=== PATIENT | female | born 1955 | race Caucasian/White ===

== ENCOUNTER 2018-04-18 11:24 | Inpatient (IN) | payer MEDICAID ==
[~2018-04-18] VITALS: Ht 165.1 cm; Wt 96.8 kg
[~2018-04-18 11:24] MED LIST: CARV6.2530; CLON1TAB9; DULO-31; FENO134C; FOLI-43; GABA-338; INSU100V36; INSU100V9 SQ; LEVO200T46; LISI-600 PO; MIRT15TA; NABU-102 PO; PANT20TA3; PRAZ2CAP2; TRAM50TA2
[2018-04-18] MEDS ORDERED: normal saline 1000ML IV soln IVB ONE (12:05)
[2018-04-18 12:29] LABS: BASOPHILS % (AUTO) 0.1 % (0-1); EOSINOPHILS # (AUTO) 0.3 X10'3 (0-0.9); EOSINOPHILS % (AUTO) 2.9 % (0-6); HEMATOCRIT 36.6 % (35.0-45.0); HEMOGLOBIN 12.5 g/dl (12.0-16.0); LYMPHOCYTES # (AUTO) 3.3 X10'3 (1.1-4.8); LYMPHOCYTES % (AUTO) 29.1 % (21-51); MEAN CORPUSCULAR HEMOGLOBIN 30.7 PG (27.0-31.0); MEAN CORPUSCULAR HGB CONC 34.1 % (33.0-36.5); MEAN CORPUSCULAR VOLUME 89.9 FL (78-98); MEAN PLATELET VOLUME 8.5 FL (7.4-10.4); MONOCYTES # (AUTO) 0.6 X10'3 (0-0.9); MONOCYTES % (AUTO) 5.4 % (2-12); NEUTROPHILS % (AUTO) 62.5 % (42-75); PLATELET COUNT 333 X10'3 (140-440); RED BLOOD COUNT 4.07 X10'6 (4.20-5.60); RED CELL DISTRIBUTION WIDTH 13.8 % (11.5-14.5); WHITE BLOOD COUNT 11.2 X10'3 (4.5-11.0)
[2018-04-18 12:50] LABS: ALANINE AMINOTRANSFERASE 25 U/L (12-78); ALBUMIN 3.6 G/DL (3.4-5.0); ALKALINE PHOSPHATASE 83 IU/L (46-116); ANION GAP 9 (8-16); ASPARTATE AMINO TRANSFERASE 22 U/L (10-37); BILIRUBIN,TOTAL 0.3 MG/DL (0.1-1.0); BLOOD UREA NITROGEN 41 MG/DL (7-18); BUN/CREATININE RATIO 19.2 (6.6-38.0); CALCIUM 9.2 MG/DL (8.5-10.1); CHLORIDE 102 MMOL/L (99-107); CREATININE 2.13 MG/DL (0.40-0.90); GLUCOSE 60 MG/DL (70-104); POTASSIUM 4.1 MMOL/L (3.5-5.1); SODIUM 139 MMOL/L (135-145); TOTAL CARBON DIOXIDE 27.9 MMOL/L (24-32); TOTAL PROTEIN 7.3 G/DL (6.4-8.2); eGFR 24 ML/MIN
[2018-04-18 13:08] LABS: ACETAMINOPHEN 3.5 UG/ML (10-30); ETHANOL < 0.010 GM/DL (0.0-0.010)
[2018-04-18 13:09] LABS: CLARITY,URINE CLOUDY (Clear); COLOR,URINE YELLOW (Yellow); GLUCOSE, URINE NEGATIVE (Neg); KETONES,URINE NEGATIVE (Neg); LEUKOCYTE ESTERASE ,URINE SMALL (Neg); NITRITES, URINE NEGATIVE (Neg); OCCULT BLOOD,URINE TRACE-INTACT (Neg); PROTEIN,URINE >=300 mg/dl (Neg)
[2018-04-18 13:09] LABS: INR 1.1 INR; PROTHROMBIN TIME 11.4 SECONDS (9.0-12.0)
[2018-04-18 13:17] LABS: UA COLLECTION TYPE CLN CATCH MIDSTREAM
[2018-04-18 13:19] LABS: WBC,URINE 50-100 /HPF (0-4)
[2018-04-18 13:20] LABS: BACTERIA,URINE 4+ /HPF (Neg); MUCUS STRANDS MODERATE /LPF (Neg); RBC,URINE 0-2 /HPF (0-2); SQUAMOUS EPITHELIAL CELL,UR MODERATE /LPF (FEW); TRANSITIONAL EPI CELLS,URINE FEW /HPF
[2018-04-18 13:23] LABS: URINE AMPHETAMINE SCREEN NEGATIVE (Neg); URINE BARBITUATE SCREEN NEGATIVE (Neg); URINE BENZODIAZEPINES SCREEN NEGATIVE (Neg); URINE CANNABINOID SCREEN NEGATIVE (Neg); URINE COCAINE SCREEN NEGATIVE (Neg); URINE METHADONE SCREEN NEGATIVE (Neg); URINE OPIATE SCREEN NEGATIVE (Neg); URINE PHENCYCLIDINE SCREEN NEGATIVE (Neg)
[2018-04-18] MEDS ORDERED: CefTRIAXone/D5W-Rocephin 1gm 50 ML IV ONE (14:55)
[2018-04-18] MEDS ORDERED: dextrose 50%-water 50ml dispensing syringe IV ONE (14:55)
[2018-04-18] MEDS ORDERED: dextrose 50%-water 50ml dispensing syringe IV PRN ×2 (17:00)
[2018-04-18] MEDS ORDERED: ondansetron/PF 4mg/2ml inj IV PRN (17:00)
[2018-04-18] MEDS ORDERED: mag hydrox/Alum hydrox/simeth 30ml oral suspension PO PRN (17:00)
[2018-04-18] MEDS ORDERED: dextrose ORAL solution 15 GM/59 ML bottle PO PRN ×2 (17:00)
[2018-04-18] MEDS ORDERED: MESSAGE TO PHARMACY PO ONE (17:00)
[2018-04-18] MEDS ORDERED: magnesium 4gm in 100ml NS 100 ML IV PRN (17:00)
[2018-04-18] MEDS ORDERED: glucagon, human recombinant 1mg kit SUBCUT PRN (17:00)
[2018-04-18] MEDS ORDERED: magnesium hydroxide 30ml (MOM) UD suspension PO PRN (17:00)
[2018-04-18] MEDS ORDERED: potassium Cl 20 mEq SR tablet PO PRN ×2 (17:00)
[2018-04-18] MEDS ORDERED: acetaminophen 325mg tablet PO PRN (17:00)
[2018-04-18] MEDS ORDERED: potassium Cl 40MEQ/NS 500ml 500 ML IV PRN ×2 (17:00)
[2018-04-18] MEDS: normal saline 1000ml 1,000 ML IV SCH (19:23)
[2018-04-18] MEDS: carvedilol 6.25mg tablet PO SCH (20:10)
[2018-04-18] MEDS: insulin glargine (Lantus) pen - multi-dose SQ SCH (22:46)
[2018-04-19] MEDS: normal saline 1000ml 1,000 ML IV SCH ×4 (03:00→20:59)
[2018-04-19 06:00] VITALS: BP 153/66
[2018-04-19 06:36] VITALS: BP 153/66
[2018-04-19 06:48] LABS: BASOPHILS % (AUTO) 0.5 % (0-1); EOSINOPHILS # (AUTO) 0.3 X10'3 (0-0.9); EOSINOPHILS % (AUTO) 3.5 % (0-6); HEMATOCRIT 34.8 % (35.0-45.0); HEMOGLOBIN 11.7 g/dl (12.0-16.0); LYMPHOCYTES # (AUTO) 3.5 X10'3 (1.1-4.8); LYMPHOCYTES % (AUTO) 39.6 % (21-51); MEAN CORPUSCULAR HEMOGLOBIN 30.5 PG (27.0-31.0); MEAN CORPUSCULAR HGB CONC 33.7 % (33.0-36.5); MEAN CORPUSCULAR VOLUME 90.6 FL (78-98); MEAN PLATELET VOLUME 8.8 FL (7.4-10.4); MONOCYTES # (AUTO) 0.4 X10'3 (0-0.9); MONOCYTES % (AUTO) 4.6 % (2-12); NEUTROPHILS # (AUTO) 4.6 X10'3 (1.8-7.7); NEUTROPHILS % (AUTO) 51.8 % (42-75); PLATELET COUNT 271 X10'3 (140-440); RED BLOOD COUNT 3.84 X10'6 (4.20-5.60); WHITE BLOOD COUNT 8.8 X10'3 (4.5-11.0)
[2018-04-19 07:20] LABS: ALANINE AMINOTRANSFERASE 22 U/L (12-78); ALBUMIN 3.1 G/DL (3.4-5.0); ALBUMIN/GLOBULIN RATIO 0.9 (1.1-1.5); ALKALINE PHOSPHATASE 64 IU/L (46-116); ANION GAP 8 (8-16); ASPARTATE AMINO TRANSFERASE 29 U/L (10-37); BILIRUBIN,TOTAL 0.2 MG/DL (0.1-1.0); BLOOD UREA NITROGEN 34 MG/DL (7-18); BUN/CREATININE RATIO 21.1 (6.6-38.0); CALCIUM 8.6 MG/DL (8.5-10.1); CHLORIDE 105 MMOL/L (99-107); CHOL/HDL RATIO 5.1 (0.00-4.99); CHOLESTEROL 133 MG/DL (0-200); CREATININE 1.61 MG/DL (0.40-0.90); GLUCOSE 122 MG/DL (70-104); HDL CHOLESTEROL 26 MG/DL (35-60); LDL CHOLESTEROL 84 MG/DL (50-100); MAGNESIUM 1.1 MG/DL (1.5-2.4); SODIUM 140 MMOL/L (135-145); TOTAL CARBON DIOXIDE 27.4 MMOL/L (24-32); TOTAL PROTEIN 6.4 G/DL (6.4-8.2); TRIGLYCERIDES 153 MG/DL (20-135); eGFR 33 ML/MIN
[2018-04-19 07:23] LABS: POTASSIUM 4.4 MMOL/L (3.5-5.1)
[2018-04-19] MEDS: folic acid 1mg tablet PO SCH (07:42)
[2018-04-19] MEDS: pantoprazole 40mg Tablet.DR PO SCH (07:42)
[2018-04-19] MEDS: fenofibrate 145mg tablet PO SCH (07:42)
[2018-04-19] MEDS: carvedilol 6.25mg tablet PO SCH ×2 (07:42→19:47)
[2018-04-19] MEDS: levoTHYROXINE 100mcg tablet PO SCH (07:42)
[2018-04-19] MEDS: enoxaparin 40mg/0.4ml syringe SQ SCH (07:43)
[2018-04-19] MEDS ORDERED: LEVOTHYROXINE SODIUM 200 MCG SCH (08:00)
[2018-04-19] MEDS: K and/or MAG REPLACEMENT MC SCH (08:00)
[2018-04-19] MEDS ORDERED: CefTRIAXone/D5W-Rocephin 1gm 50 ML IV SCH (08:00)
[2018-04-19] MEDS ORDERED: PANTOPRAZOLE SODIUM 20 MG SCH (08:00)
[2018-04-19] MEDS ORDERED: FENOFIBRATE MICRONIZED 134 MG SCH (08:00)
[2018-04-19] MEDS: insulin Lispro (HumaLOG) vial - multi-dose SQ SCH ×3 (08:19→19:00)
[2018-04-19 10:00] VITALS: BP 133/65
[2018-04-19] MEDS ORDERED: acetaminophen 325mg tablet PO PRN (12:10)
[2018-04-19] MEDS ORDERED: levoFLOXACIN 750MG TABLET PO SCH (15:00)
[2018-04-19 15:17] LABS: BLOOD UREA NITROGEN 32 MG/DL (7-18); CREATININE 1.53 MG/DL (0.40-0.90); eGFR 35 ML/MIN
[2018-04-19] MEDS ORDERED: ATOR40TA72 PO (17:53)
[2018-04-19] MEDS ORDERED: CHOL50004 PO (17:53)
[2018-04-19 18:00] VITALS: BP 156/75
[2018-04-19] MEDS: insulin glargine (Lantus) pen - multi-dose SQ SCH (20:59)
[2018-04-19 22:00] VITALS: BP 126/59
[2018-04-20] MEDS: normal saline 1000ml 1,000 ML IV SCH (05:39)
[2018-04-20 06:04] LABS: BASOPHILS % (AUTO) 0.3 % (0-1); EOSINOPHILS # (AUTO) 0.3 X10'3 (0-0.9); EOSINOPHILS % (AUTO) 3.9 % (0-6); HEMATOCRIT 33.7 % (35.0-45.0); HEMOGLOBIN 11.4 g/dl (12.0-16.0); LYMPHOCYTES # (AUTO) 2.4 X10'3 (1.1-4.8); MEAN CORPUSCULAR HEMOGLOBIN 30.6 PG (27.0-31.0); MEAN CORPUSCULAR HGB CONC 33.9 % (33.0-36.5); MEAN CORPUSCULAR VOLUME 90.4 FL (78-98); MEAN PLATELET VOLUME 8.6 FL (7.4-10.4); MONOCYTES # (AUTO) 0.4 X10'3 (0-0.9); MONOCYTES % (AUTO) 5.3 % (2-12); NEUTROPHILS # (AUTO) 4.2 X10'3 (1.8-7.7); NEUTROPHILS % (AUTO) 57.5 % (42-75); PLATELET COUNT 251 X10'3 (140-440); RED BLOOD COUNT 3.72 X10'6 (4.20-5.60); RED CELL DISTRIBUTION WIDTH 13.6 % (11.5-14.5); WHITE BLOOD COUNT 7.4 X10'3 (4.5-11.0)
[2018-04-20 06:07] LABS: ALANINE AMINOTRANSFERASE 21 U/L (12-78); ALBUMIN/GLOBULIN RATIO 0.9 (1.1-1.5); ALKALINE PHOSPHATASE 62 IU/L (46-116); ANION GAP 8 (8-16); ASPARTATE AMINO TRANSFERASE 23 U/L (10-37); BILIRUBIN,TOTAL 0.2 MG/DL (0.1-1.0); BLOOD UREA NITROGEN 25 MG/DL (7-18); BUN/CREATININE RATIO 15.4 (6.6-38.0); CALCIUM 8.6 MG/DL (8.5-10.1); CHLORIDE 107 MMOL/L (99-107); CREATININE 1.62 MG/DL (0.40-0.90); GLUCOSE 160 MG/DL (70-104); MAGNESIUM 1.6 MG/DL (1.5-2.4); POTASSIUM 4.6 MMOL/L (3.5-5.1); SODIUM 141 MMOL/L (135-145); TOTAL CARBON DIOXIDE 25.6 MMOL/L (24-32); TOTAL PROTEIN 6.4 G/DL (6.4-8.2); eGFR 32 ML/MIN
[2018-04-20] MEDS: K and/or MAG REPLACEMENT MC SCH (07:12)
[2018-04-20 07:27] VITALS: BP 120/68
[2018-04-20] MEDS: folic acid 1mg tablet PO SCH (07:44)
[2018-04-20] MEDS: levoTHYROXINE 100mcg tablet PO SCH (07:44)
[2018-04-20] MEDS: fenofibrate 145mg tablet PO SCH (07:44)
[2018-04-20] MEDS: enoxaparin 40mg/0.4ml syringe SQ SCH (07:44)
[2018-04-20] MEDS: pantoprazole 40mg Tablet.DR PO SCH (07:44)
[2018-04-20] MEDS: carvedilol 6.25mg tablet PO SCH (07:45)
[2018-04-20] MEDS: insulin Lispro (HumaLOG) vial - multi-dose SQ SCH ×2 (08:57→14:11)
[2018-04-20 10:00] VITALS: BP 158/71
[2018-04-20] MEDS ORDERED: albuterol 2.5 MG/3 ML nebule NEB ONE (10:15)
[2018-04-20] MEDS ORDERED: budesonide 0.5mg/2ml UD nebule IH ONE (10:20)
[2018-04-20] MEDS ORDERED: LEVO750T46 PO (11:35)
[2018-04-20] MEDS ORDERED: lactobacillus rhamnosus 10,000 MMU CELLS/CAPSULE PO SCH (20:00)
== END 2018-04-20 15:00 | disposition home or self-care (01) | DRG 469 ==
LOC: ER 11:24 → ED HOLD 16:57 → ORTHO 4S 21:35
PROVIDERS: ADMIT Family Medicine; ATTEND Family Medicine
DX: N17.9 Acute kidney failure, unspecified (principal); G93.40 Encephalopathy, unspecified; E11.649 Type 2 diabetes mellitus with hypoglycemia without coma; E11.21 Type 2 diabetes mellitus with diabetic nephropathy; E11.22 Type 2 diabetes mellitus with diabetic chronic kidney disease; I95.9 Hypotension, unspecified; I13.0 Hypertensive heart and chronic kidney disease with heart failure and stage 1 through stage 4 chronic kidney disease, or unspecified chronic kidney disease; I50.9 Heart failure, unspecified; E89.0 Postprocedural hypothyroidism; F32.9 Major depressive disorder, single episode, unspecified; J45.909 Unspecified asthma, uncomplicated; K21.9 Gastro-esophageal reflux disease without esophagitis; F15.90 Other stimulant use, unspecified, uncomplicated; F41.9 Anxiety disorder, unspecified; G89.29 Other chronic pain; M19.90 Unspecified osteoarthritis, unspecified site; N18.9 Chronic kidney disease, unspecified; N39.0 Urinary tract infection, site not specified; Z59.0 Homelessness; Z85.850 Personal history of malignant neoplasm of thyroid; Z91.5 Personal history of self-harm; Z88.8 Allergy status to other drugs, medicaments and biological substances; Z79.899 Other long term (current) drug therapy; Z79.4 Long term (current) use of insulin
CPT/HCPCS: 36415; 70450; 71045; 80053; 80061; 80305; 80320; 80329; 81001; 82140; 82565; 82948; 83036; 83735; 84443; 84484; 84520; 85025; 85610; 87070; 87077; 87088; 87186; 92616; 94640; 94760; 96361; 96365; 96366; 97110; 97161; 99285; G0378; J0696; J1650; J1815; J3475; J7030; J7626

== ENCOUNTER 2018-08-25 11:36 | Emergency (ER) | payer MEDICAID ==
[~2018-08-25] VITALS: Ht 170.2 cm; Wt 99.0 kg
[~2018-08-25 11:36] MED LIST changes: +ATOR40TA72 PO; +CHOL50004 PO; -GABA-338; +LEVO750T46 PO; -LISI-600 PO; -MIRT15TA; -NABU-102 PO; -TRAM50TA2
[2018-08-25] MEDS ORDERED: INSU100V9 SQ (13:19)
[2018-08-25] MEDS ORDERED: INSU100I7 SQ (13:19)
[2018-08-25] MEDS ORDERED: CHLO25CA10 PO (13:19)
[2018-08-25 13:55] VITALS: BP 153/82
== END 2018-08-25 13:58 | disposition home or self-care (01) ==
LOC: ER 11:39
DX: F13.239 Sedative, hypnotic or anxiolytic dependence with withdrawal, unspecified (principal); E11.9 Type 2 diabetes mellitus without complications; F41.9 Anxiety disorder, unspecified; I11.0 Hypertensive heart disease with heart failure; I50.9 Heart failure, unspecified; J45.909 Unspecified asthma, uncomplicated; F15.90 Other stimulant use, unspecified, uncomplicated; G89.29 Other chronic pain; Z85.858 Personal history of malignant neoplasm of other endocrine glands; Z87.891 Personal history of nicotine dependence; Z88.8 Allergy status to other drugs, medicaments and biological substances; Z79.899 Other long term (current) drug therapy; Z79.4 Long term (current) use of insulin
CPT/HCPCS: 82948; 99283